=== PATIENT | female | born 2000 | race Caucasian/White ===

== ENCOUNTER 2020-03-04 09:00 | Emergency (ER) | payer BC, OTHER ==
[2020-03-04] MEDS ORDERED: Rabies Immune Globulin PF 150 Units/ML 2 ML SDV IM ONE (09:52)
--- NOTE | 2020-03-04 09:52 | EDM.PDOC ---
ED HPI GENERAL MEDICAL PROBLEM - General Chief Complaint: Bite:Animal, Insect Stated Complaint: ANIMAL BITE-SENT FROM [place] Time Seen by Provider: 03/04/20 09:25 Source of Information: Reports: Patient History Limitations: Reports: No Limitations - History of Present Illness INITIAL COMMENTS - FREE TEXT/NARRATIVE: The patient presents for a dog bite to the right index finger on February 23. She works for the [employer] in [place]. They had a dog that had a seizure and she got bit. It was found the dog may have eaten rat poison. It was thought the dog was immunized for rabies but she just found it was not immunized. She is in town visiting family. She has no symptoms such as redness, swelling, pain or drainage to the finger. She has no fever, chills, cough, congestion, runny nose, chest pain, shortness of breath, abdominal pain, nausea, vomiting, numbness or weakness. Onset: Sudden Duration: Day(s): (9) Location: Reports: Upper Extremity, Right (index finger) Quality: Reports: Sharp Severity: Mild Improves with: Reports: None Worsens with: Reports: None Associated Symptoms: Reports: No Other Symptoms - Related Data Allergies Allergy/AdvReac Type Severity Reaction Status Date / Time No Known Allergies Allergy Verified 03/04/20 09:06 Past Medical History - Past Surgical History HEENT Surgical History: Reports: Oral Surgery Social & Family History - Family History Family Medical History: Noncontributory - Tobacco Use Smoking Status *Q: Never Smoker Second Hand Smoke Exposure: No ED ROS GENERAL - Review of Systems Review Of Systems: See Below Constitutional: Reports: No Symptoms HEENT: Reports: No Symptoms Respiratory: Reports: No Symptoms Cardiovascular: Reports: No Symptoms Endocrine: Reports: No Symptoms GI/Abdominal: Reports: No Symptoms : Reports: No Symptoms Musculoskeletal: Reports: No Symptoms ED EXAM, ANIMAL BITE - Physical Exam Exam: See Below Exam Limited By: No Limitations General Appearance: Alert, No Apparent Distress Ears: Normal External Exam Nose: Normal Inspection Head: Atraumatic, Normocephalic Neck: Normal Inspection Respiratory/Chest: No Respiratory Distress, Lungs Clear, Normal Breath Sounds Cardiovascular: Regular Rate, Rhythm, No Edema, No Murmur GI/Abdominal: Soft, Non-Tender, No Organomegaly, No Mass Extremities: Other (Ecchymosis under the right index finger. Scab to the finger but no erythema, edema or drainage.) Course - Vital Signs Last Recorded V/S: Last Vital Signs Temp 97.9 F 03/04/20 09:07 Pulse 73 03/04/20 09:07 Resp 16 03/04/20 09:07 BP 116/84 03/04/20 09:07 Pulse Ox 100 03/04/20 09:07 - Orders/Labs/Meds Orders: Active Orders 24 hr Category Date Time Status Vaccines to be Administered [RC] PER UNIT ROUTINE Care 03/04/20 09:53 Active Meds: Medications Discontinued Medications Generic Name Dose Route Start Last Admin Trade Name Zulema PRN Reason Stop Dose Admin Rabies Immune Globulin 1,160 unit 03/04/20 09:52 Imogam Rabies-Ht IM 03/04/20 09:53 .ONCE ONE Rabies Immune Globulin 1,200 unit 03/04/20 10:45 Hyperrab 300 Unit/Ml Vial IM 03/04/20 10:46 ONETIME ONE Rabies Vaccine 2.5 unit 03/04/20 09:53 Rabavert IM 03/04/20 09:54 .ONCE ONE - Re-Assessments/Exams Free Text/Narrative Re-Assessment/Exam: 03/04/20 09:51 The dog is and the owners took it home. I feel I need to start the postexposure prophylaxis. I will give her IM RIG and rabies vaccine. Departure - Departure Time of Disposition: 10:55 Disposition: Home, Self-Care 01 Condition: Good Clinical Impression: Dog bite Qualifiers: Encounter type: initial encounter Qualified Code(s): W54.0XXA - Bitten by dog, initial encounter - Discharge Information *PRESCRIPTION DRUG MONITORING PROGRAM REVIEWED*: Not Applicable *COPY OF PRESCRIPTION DRUG MONITORING REPORT IN PATIENT VARUN: Not Applicable Referrals: PCP,Not In Area [Primary Care Provider] - Forms: ED Department Discharge Additional Instructions: You had the rabies immune globulin and the rabies vaccine today. You do not need any more immune globulin but you will need three more injections of the rabies immune vaccine. You need one on day 3, 7 and 14. So you need one on March 07, March 11, and March 18. Please return if you have any more problems. Sepsis Event Note (ED) - Evaluation Sepsis Screening Result: No Definite Risk - Focused Exam Vital Signs: Vital Signs Temp Pulse Resp BP Pulse Ox 03/04/20 09:07 97.9 F 73 16 116/84 100 - My Orders Last 24 Hours: My Active Orders 03/04/20 09:53 Vaccines to be Administered [RC] PER UNIT ROUTINE - Assessment/Plan Last 24 Hours: My Active Orders 03/04/20 09:53 Vaccines to be Administered [RC] PER UNIT ROUTINE
[2020-03-04] MEDS ORDERED: Rabies Vaccine (Avian) 2.5 Unit Inj Kit IM ONE (09:53)
[2020-03-04] MEDS ORDERED: Rabies Immune Globulin/PF 300 UNIT/ML 5 ML SDV IM ONE (10:45)
== END 2020-03-04 11:00 | disposition home or self-care (01) ==
LOC: JD.ED 09:00
DX: S61.250A Open bite of right index finger without damage to nail, initial encounter (principal); Z23 Encounter for immunization; W54.0XXA Bitten by dog, initial encounter
CPT/HCPCS: 90375; 90471; 90675; 96372; 99283

== ENCOUNTER 2024-02-26 06:07 | Emergency (ER) | payer OTHER ==
[2024-02-26] MEDS: Albuterol 6.7 GM Inhaler INH PRN (06:35)
[2024-02-26] MEDS: Dexamethasone 6 MG TABLET PO ONE (06:38)
[2024-02-26] MEDS: Triamcinolone Acetonide 40 MG/ML 1 ML SDV INJECT ONE (06:39)
== END 2024-02-26 07:01 | disposition home or self-care (01) ==
LOC: JD.ED 06:07
DX: J30.2 Other seasonal allergic rhinitis (principal); Z79.899 Other long term (current) drug therapy; Z88.2 Allergy status to sulfonamides; Z91.010 Allergy to peanuts; Z91.048 Other nonmedicinal substance allergy status
CPT/HCPCS: 94640; 99284; A9270; J3301; J8540